=== PATIENT | male | born 1955 | race Caucasian/White ===

== ENCOUNTER → 2020-05-06 11:49 | Outpatient (CLI) | payer MEDICARE, BC | END | disposition home or self-care (01) | LOC: D.MRI 11:49 | PROVIDERS: ATTEND Legal Medicine | DX: M25.551 Pain in right hip (principal); M25.552 Pain in left hip; G54.4 Lumbosacral root disorders, not elsewhere classified; I73.89 Other specified peripheral vascular diseases ==